=== PATIENT | female | born 1975 | race Asian ===

== ENCOUNTER 2024-02-11 13:43 | Emergency (ER) | payer OTHER ==
[2024-02-11] MEDS ORDERED: predniSONE 20 MG TABLET (UD) ONE (15:29)
[2024-02-11] MEDS ORDERED: diphenhydrAMINE HCL 25 MG CAPSULE (FP) PO ONE (15:29)
[2024-02-11] MEDS: predniSONE 20 MG TABLET (UD) PO ONE (15:32)
[2024-02-11] MEDS: diphenhydrAMINE HCL 25 MG CAPSULE (FP) PO ONE (15:32)
[2024-02-11 16:26] VITALS: BP 144/90; PULSE 79; RESP 18; TEMP 98.5; BMI 30.9
== END 2024-02-11 16:04 | disposition home or self-care (01) ==
LOC: JERFT 13:43
DX: R21 Rash and other nonspecific skin eruption (principal); L29.9 Pruritus, unspecified
CPT/HCPCS: 99283-25